=== PATIENT | female | born 1950 | race Caucasian/White ===

== ENCOUNTER → 2016-06-20 | Outpatient (CLI) | payer OTHER ==
--- NOTE | 2016-06-20 17:23 | MR ---
MRI Cervical Spine Without Contrast History: Neck pain. ICD 10 code M54.2. Comparison: Radiograph from September 2009. Technique: MRI is performed of the cervical spine using a 3 [employer] MRI system. Sagittal and axial imag ing was obtained with standard imaging sequences. Findings: No significant bone marrow abnormality is visualized. Degenerative endplate change is seen at C5-C6 and C6-C7. There is disk desiccation in the cervical spine. Disk height narrowing and osteop hytosis is seen at C5-C6 and C6-C7. No significant spondylolisthesis. Cervical spinal cord is normal in size and signal intensity. C2-C3 level unremarkable. C3-C4 level demonstrates mild facet arthropathy on the left, causing minimal left neural foraminal na rrowing. C4-C5 level demonstrates a minimal central protrusion minimally effacing the anterior thecal sac. Mil d facet arthropathy is seen on the left, causing no significant encroachment. C5-C6 level demonstrates a mild broad-based annular bulge mildly effacing the anterior thecal sac. Un covertebral joint hypertrophy and spurring is seen bilaterally, more severe on the left. There is mod erate left and mild right neural foraminal narrowing. C6-C7 level demonstrates a mild broad-based annular bulge mildly effacing the anterior thecal sac. Un covertebral joint hypertrophy is seen bilaterally, causing mild bilateral neural foraminal narrowing. C7-T1 level demonstrates minimal facet arthropathy, causing no significant encroachment. 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 Levels that a re more significant are at C5-C6 and C6-C7 with mild spinal canal and mild to moderate neural foramin al encroachment, as detailed above.
== END ==
LOC: FIMAGING 14:25
PROVIDERS: ATTEND Physician Assistant
DX: M50.322 Other cervical disc degeneration at C5-C6 level (principal); M50.323 Other cervical disc degeneration at C6-C7 level

== ENCOUNTER → 2016-07-23 | Outpatient (CLI) | payer OTHER | LOC: FIMAGING 10:12 | PROVIDERS: ATTEND Internal Medicine | DX: D25.9 Leiomyoma of uterus, unspecified (principal); N83.8 Other noninflammatory disorders of ovary, fallopian tube and broad ligament ==

== ENCOUNTER → 2016-08-27 | Outpatient (CLI) | payer OTHER, MEDICARE | LOC: FIMAGING 13:46 | DX: Z12.31 Encounter for screening mammogram for malignant neoplasm of breast (principal); Z85.850 Personal history of malignant neoplasm of thyroid | CPT/HCPCS: G0202 ==

== ENCOUNTER → 2017-06-03 | Outpatient (CLI) | payer OTHER, MEDICARE | LOC: FIMAGING 15:38 | PROVIDERS: ATTEND Internal Medicine Endocrinology, Diabetes & Metabolism | DX: E04.1 Nontoxic single thyroid nodule (principal) ==

== ENCOUNTER → 2017-10-10 | Outpatient (CLI) | payer OTHER, MEDICARE | LOC: FIMAGING 15:27 | PROVIDERS: ATTEND Internal Medicine | DX: Z12.31 Encounter for screening mammogram for malignant neoplasm of breast (principal) ==

== ENCOUNTER → 2018-10-18 | Outpatient (CLI) | payer OTHER, MEDICARE | LOC: FIMAGING 14:15 ==